=== PATIENT | female | born 1965 | race American Indian/Alaskan Native ===

== ENCOUNTER 2016-08-23 12:36 | Emergency (ER) | payer OTHER ==
[2016-08-23 12:39] VITALS: BMI 39.2
[2016-08-23 12:46] VITALS: TEMP 98.6
--- NOTE | 2016-08-23 13:42 | ED PDOC ---
Arrival/HPI - General Chief Complaint: Weakness/Neurological Deficit Time Seen by Provider: 08/23/16 12:53 Historian: Patient - History of Present Illness Narrative History of Present Illness (Text): 08/23/16 13:39 51 year old female with a past medical history that includes diabetes, hypertension, and c-spine stenosis presents to the emergency department with bilateral numbness on the shoulders approximately 2-3 hours prior to arrival. Patient states she was driving when she began to feel "heaviness" in both arms. Patient states the episode lasted for about 20 minutes and is now resolved. Denies chest pain, shortness of breath, or other symptoms. PMD: Dr. 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 - HEENT Hx HEENT Disorder: No - Renal Hx Renal Disorder: No - Endocrine/Metabolic Hx Diabetes Mellitus Type 2: Yes - Hematological/Oncological Hx Blood Disorders: No - Integumentary Hx Dermatological Disorder: No - Musculoskeletal/Rheumatological Hx Musculoskeletal Disorders: Yes (CARPAL TUNNEL,CERVICAL SPONDYLOSIS) Hx Arthritis: Yes (Hx of right knee. Currently neck/ left shoulder.) Hx Falls: No - Gastrointestinal Hx Gastrointestinal Disorders: Yes Hx Diverticulitis: Yes - Genitourinary/Gynecological Hx Genitourinary Disorders: No (HYSTERECTOMY SECONDARY TO FIBROID) - Psychiatric Hx Psychophysiologic Disorder: No Hx Substance Use: No - Past Surgical History Past Surgical History: Non-Contributing - Surgical History Hx Hysterectomy: Yes (2003.) - Anesthesia Hx Anesthesia Reactions: No Hx Malignant Hyperthermia: No - Suicidal Assessment Feels Threatened In Home Enviroment: No Family/Social History - Physician Review Nursing Documentation Reviewed: Yes Family/Social History: Unknown Family HX Smoking Status: Never Smoked Hx Alcohol Use: No Hx Substance Use: No Hx Substance Use Treatment: No Allergies/Home Meds Allergies/Adverse Reactions: Allergies No Known Allergies Allergy (Verified 03/24/16 22:39) Home Medications: Home Meds Medication Instructions Recorded Confirmed Aspirin 81 mg PO DAILY 09/26/14 08/23/16 Amlodipine Besylate [Norvasc] 10 mg PO BID 10/13/15 08/23/16 metFORMIN [glucOPHAGE] 500 mg PO BID 01/05/16 08/23/16 Enalapril Maleate [Vasotec] 10 mg PO DAILY 03/19/16 08/23/16 Insulin Glargine, Recombina 10 units SQ BID 03/24/16 08/23/16 [Lantus] Review of Systems - Physician Review All systems were reviewed & negative as marked: Yes - Review of Systems Eyes: absent: Vision Changes Respiratory: absent: SOB Cardiovascular: absent: Chest Pain Gastrointestinal: absent: Abdominal Pain Neurological: Other (Numbness to both arms (resolved)). absent: Dizziness Physical Exam Vital Signs Reviewed: Yes Vital Signs Temp Pulse Resp BP Pulse Ox 08/23/16 16:46 61 18 158/93 H 99 08/23/16 14:00 67 16 157/86 H 98 08/23/16 12:36 98.6 F 69 18 170/85 H 99 Temperature: Afebrile Blood Pressure: Hypertensive Pulse: Regular Respiratory Rate: Normal Appearance: Positive for: Well-Appearing, Non-Toxic, Comfortable Pain Distress: None Mental Status: Positive for: Alert and Oriented X 3 Finger Stick Blood Glucose: 249 - Systems Exam Head: Present: Atraumatic, Normocephalic Pupils: Present: PERRL Extroacular Muscles: Present: EOMI Conjunctiva: Present: Normal Mouth: Present: Moist Mucous Membranes Neck: Present: Normal Range of Motion Respiratory/Chest: Present: Clear to Auscultation, Good Air Exchange. No: Respiratory Distress, Accessory Muscle Use Cardiovascular: Present: Regular Rate and Rhythm, Normal S1, S2. No: Murmurs Abdomen: Present: Normal Bowel Sounds. No: Tenderness, Distention, Peritoneal Signs Back: Present: Normal Inspection Upper Extremity: Present: Normal Inspection. No: Cyanosis, Edema Lower Extremity: Present: Normal Inspection. No: Edema Neurological: Present: GCS=15, CN II-XII Intact, Speech Normal, Motor Func Grossly Intact, Normal Sensory Function, Normal Cerebellar Funct, Norm Deep Tendon Reflexes, Other (Brachioradialis and biceps reflex normal. Bilateral arm strength normal.) Skin: Present: Warm, Dry, Normal Color. No: Rashes Psychiatric: Present: Alert, Oriented x 3, Normal Insight, Normal Concentration Medical Decision Making ED Course and Treatment: EKG shows NSR at 62 BPM, normal axis, normal intervals, no acute ischemia PROCEDURE: CT HEAD WITHOUT CONTRAST. Clinical Studies Specialist : Andrés Mcclain MD IMPRESSION: Normal CT of the Head. 08/23/16 14:31 Patient now complaining of headache that began prior to arrival. She states it is getting worse. Patient reports she gets this same headache several times a year Disc with Dr Blanton who is familiar with the patient. He agrees w plan for close follow up next week. Pt has normal neuro exam, symmetric reflexes, no deficits. Patient states she feels better. she is comfortable w plan. Neck ROM is normal without difficulty or pain. Will return if worse. - Lab Interpretations Lab Results: 08/23/16 13:20 08/23/16 13:20 Lab Results 08/23/16 13:20: WBC 8.2, RBC 4.77, Hgb 13.3, Hct 39.6, MCV 83.0, MCH 27.9, MCHC 33.6, RDW 13.4, Plt Count 199, MPV 11.2 H, Gran % 71.8 H, Lymph % (Auto) 20.7 L , Bell % (Auto) 5.3, Eos % (Auto) 2.0, Baso % (Auto) 0.2, Gran # 5.87, Lymph # 1.7, Bell # 0.4, Eos # 0.2, Baso # 0.02, Sodium 136, Potassium 4.2, Chloride 99 , Carbon Dioxide 31, Anion Gap 10, BUN 11, Creatinine 0.5, Est GFR ( Amer ) > 60, Est GFR (Non-Af Amer) > 60, Random Glucose 227 H, Calcium 9.1, Total Bilirubin 0.7, AST 27, ALT 39, Alkaline Phosphatase 98, Troponin I < 0.01, Total Protein 7.3, Albumin 3.7, Globulin 3.6, Albumin/Globulin Ratio 1.0 L - RAD Interpretation Radiology Orders: 08/23/16 14:25 HEAD W/O CONTRAST [CT] Stat - EKG Interpretation Interpreted by ED Physician: Yes Type: 12 lead EKG - Medication Orders Current Medication Orders: Discontinued Medications Acetaminophen (Tylenol 325mg Tab) 975 mg PO STAT STA Stop: 08/23/16 16:14 Last Admin: 08/23/16 16:56 Dose: 975 MG Diphenhydramine HCl (Benadryl) 25 mg IVP STAT STA Stop: 08/23/16 16:14 Last Admin: 08/23/16 16:56 Dose: Not Given Non-Admin Reason: Allergy Ibuprofen (Motrin Tab) 800 mg PO STAT STA Stop: 08/23/16 14:26 Last Admin: 08/23/16 14:45 Dose: 800 MG Metoclopramide HCl (Reglan) 10 mg IVP STAT STA Stop: 08/23/16 16:14 Last Admin: 08/23/16 16:56 Dose: 10 MG IVP Administration Document 08/23/16 16:56 EQ (Rec: 08/23/16 16:56 EQ [facility] [facility] [id number] Charges for Administration # of IVP Administrations 1 Disposition/Present on Arrival - Present on Arrival Any Indicators Present on Arrival: No History of DVT/PE: No History of Uncontrolled Diabetes: No Urinary Catheter: No History of Decub. Ulcer: No History Surgical Site Infection Following: None - Disposition Have Diagnosis and Disposition been Completed?: Yes Diagnosis: Cervical radiculopathy Disposition: HOME/ ROUTINE Disposition Time: 16:36 Patient Problems: Current Active Problems Problem Status Diagnosed Cervical radiculopathy Acute Condition: STABLE Discharge Instructions (ExitCare): Cervical Radiculopathy (ED) Additional Instructions: Please follow up with Dr Blanton on Friday for further testing. Return to the ER for any worsening symptoms or for any other concerns. Prescriptions: Acetaminophen with Codeine [Tylenol with Codeine #3 Tablet] 1 each PO Q4H PRN # 10 tablet PRN Reason: Pain, Moderate (4-7) Referrals: Brent Blanton MD [Family Provider] - Follow up with primary
[2016-08-23 13:52] LABS: ADD MANUAL DIFF? NO
[2016-08-23 14:00] LABS: BASO # 0.02 K/mm3 (0.0-2.0); BASO % 0.2 % (0.0-3.0); EOS # 0.2 (0.0-0.7); GRAN # 5.87 (1.4-6.5); GRAN % 71.8 % (50.0-68.0); HEMATOCRIT 39.6 % (36.0-48.0); LYMPH # 1.7 (1.2-3.4); LYMPH % 20.7 % (22.0-35.0); MEAN CORPUSCULAR HEMOGLOBIN 27.9 pg (25.0-35.0); MEAN CORPUSCULAR HGB CONC 33.6 g/dl (31.0-37.0); MEAN PLATELET VOLUME 11.2 fl (7.0-11.0); MONO # 0.4 (0.1-0.6); MONO % 5.3 % (1.0-6.0); PLATELET COUNT 199 10^3/uL (120.0-450.0); RED CELL DISTRIBUTION WIDTH 13.4 % (11.5-14.5); WHITE BLOOD COUNT 8.2 10^3/ul (4.5-11.0)
[2016-08-23 14:09] LABS: ALKALINE PHOSPHATASE 98 U/L (38-133); ALT/SGPT 39 U/L (7-56); AST/SGOT 27 U/L (15-39); BILIRUBIN,TOTAL 0.7 mg/dL (0.2-1.3); BLOOD UREA NITROGEN 11 mg/dL (7-21); CALCIUM 9.1 mg/dL (8.4-10.5); CARBON DIOXIDE 31 mmol/L (21-33); CHLORIDE 99 mmol/L (98-107); GFR AFRICAN-AMERICAN > 60; GLUCOSE,RANDOM 227 mg/dL (70-110); POTASSIUM 4.2 mmol/L (3.6-5.0); SODIUM 136 mmol/L (132-148); TOTAL PROTEIN 7.3 g/dL (5.8-8.3)
[2016-08-23 14:21] LABS: TROPONIN I < 0.01 ng/mL
--- NOTE | 2016-08-23 15:05 | CT ---
PROCEDURE: CT HEAD WITHOUT CONTRAST. HISTORY: headache COMPARISON: 01/19/2014 TECHNIQUE: Axial computed tomography images were obtained through the head/brain without intravenous contrast. Radiation dose: Total exam DLP = 629 mGy-cm. This CT exam was performed using one or more of the following dose reduction techniques: Automated exposure control, adjustment of the mA and/or kV according to patient size, and/or use of iterative reconstruction technique. FINDINGS: HEMORRHAGE: No intracranial hemorrhage. BRAIN: No mass effect or edema. No atrophy or chronic microvascular ischemic changes. VENTRICLES: Unremarkable. No hydrocephalus. CALVARIUM: Unremarkable. PARANASAL SINUSES: Unremarkable as visualized. No significant inflammatory changes. MASTOID AIR CELLS: Unremarkable as visualized. No inflammatory changes. OTHER FINDINGS: None. IMPRESSION: Normal CT of the Head.
[2016-08-23] MEDS ORDERED: DiphenhydrAMINE 50 mg/ml Inj IVP STA (16:13)
[2016-08-23 16:47] VITALS: RESP 18; O2SAT 99
[2016-08-24 00:06] VITALS: BP 155/90; PULSE 66
--- NOTE | 2016-08-24 11:18 | CARD ---
APPROVED REPORT EKG Measurement Heart [id number] <Conclusion> Normal sinus rhythm Minimal voltage criteria for LVH, may be normal variant No change
== END 2016-08-23 18:10 | disposition home or self-care (01) ==
LOC: ED 12:36
DX: M54.12 Radiculopathy, cervical region (principal)
CPT/HCPCS: 70450; 80053; 84484; 85025; 93005; 96374; 99285; J2765

== ENCOUNTER 2016-09-24 22:46 | Observation (INO) | payer OTHER ==
[2016-09-24 22:57] VITALS: BMI 40.0
--- NOTE | 2016-09-24 23:21 | ED PDOC ---
Arrival/HPI - General Chief Complaint: Dizziness/Lightheaded Time Seen by Provider: 09/24/16 22:54 Historian: Patient - History of Present Illness Narrative History of Present Illness (Text): 09/24/16 22:59 Lillie Concepcion is a 51 year old female, whose past medical history includes diabetes, hypertension, hyperlipidemia, vertigo, and chronic neck pain , who presents to the ED complaining of dizziness. Patient states as she was driving home from work she began to feel dizzy. Patient states she felt near- syncopal and notes dizziness worsened after she bent down to pick something up while at home. Patient reports associated right-sided head pressure. Patient states took 1 Aspirin prior to arrival. Patient denies any fever, chills, chest pain, shortness of breath, nausea, vomiting, diarrhea, urinary symptoms, back pain, neck pain, or any other complaints. 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 - HEENT Hx HEENT Disorder: No - Renal Hx Renal Disorder: No - Endocrine/Metabolic Hx Diabetes Mellitus Type 2: Yes - Hematological/Oncological Hx Blood Disorders: No - Integumentary Hx Dermatological Disorder: No - Musculoskeletal/Rheumatological Hx Musculoskeletal Disorders: Yes (CARPAL TUNNEL,CERVICAL SPONDYLOSIS) Hx Arthritis: Yes (Hx of right knee. Currently neck/ left shoulder.) Hx Falls: No - Gastrointestinal Hx Gastrointestinal Disorders: Yes Hx Diverticulitis: Yes - Genitourinary/Gynecological Hx Genitourinary Disorders: No (HYSTERECTOMY SECONDARY TO FIBROID) - Psychiatric Hx Psychophysiologic Disorder: No Hx Substance Use: No - Past Surgical History Past Surgical History: Non-Contributing - Surgical History Hx Hysterectomy: Yes (2003.) - Anesthesia Hx Anesthesia: Yes Hx Anesthesia Reactions: No Hx Malignant Hyperthermia: No - Suicidal Assessment Feels Threatened In Home Enviroment: No Family/Social History - Physician Review Nursing Documentation Reviewed: Yes Family/Social History: No Known Family HX Smoking Status: Never Smoked Hx Alcohol Use: No Hx Substance Use: No Hx Substance Use Treatment: No Allergies/Home Meds Allergies/Adverse Reactions: Allergies No Known Allergies Allergy (Verified 03/24/16 22:39) Home Medications: Home Meds Medication Instructions Recorded Confirmed Aspirin 81 mg PO DAILY 09/26/14 08/23/16 Amlodipine Besylate [Norvasc] 10 mg PO BID 10/13/15 08/23/16 metFORMIN [glucOPHAGE] 500 mg PO BID 01/05/16 08/23/16 Enalapril Maleate [Vasotec] 10 mg PO DAILY 03/19/16 08/23/16 Insulin Glargine, Recombina 10 units SQ BID 03/24/16 08/23/16 [Lantus] Review of Systems - Physician Review All systems were reviewed & negative as marked: Yes - Review of Systems Constitutional: Normal. absent: Fevers Eyes: Normal. absent: Vision Changes ENT: Normal Respiratory: Normal. absent: SOB, Cough Cardiovascular: Other (+near-syncope) Gastrointestinal: Normal. absent: Abdominal Pain, Diarrhea, Nausea, Vomiting Genitourinary Female: Normal. absent: Dysuria, Frequency, Hematuria, Urine Output Changes Musculoskeletal: Normal. absent: Back Pain, Neck Pain Skin: Normal. absent: Rash Neurological: Headache, Dizziness. absent: Focal Weakness, Speech Changes Endocrine: Normal Hemo/Lymphatic: Normal Psychiatric: Normal Physical Exam Vital Signs Reviewed: Yes Vital Signs Temp Pulse Resp BP Pulse Ox 09/24/16 23:18 98.6 F 71 71 H 149/78 98 Temperature: Afebrile Blood Pressure: Normal Pulse: Regular Respiratory Rate: Normal Appearance: Positive for: Well-Appearing, Non-Toxic, Comfortable Pain Distress: None Mental Status: Positive for: Alert and Oriented X 3 - Systems Exam Head: Present: Atraumatic, Normocephalic Pupils: Present: PERRL Extroacular Muscles: Present: EOMI Conjunctiva: Present: Normal Ears: Present: Normal, NORMAL TM, Normal Canal. No: Erythema, TM Bulging, Fluid , TM Perf Mouth: Present: Moist Mucous Membranes Pharnyx: Present: Normal. No: ERYTHEMA, EXUDATE, TONSILS ENLARGED, Peritonsilar Swelling, Uvular Deviation, Muffled/Hoarse Voice, Strider, Soft Palate/Uvular Edema Nose (External): Present: Atraumatic Nose (Internal): Present: Normal Inspection Neck: Present: Normal Range of Motion. No: Meningeal Signs, MIDLINE TENDERNESS , Paraspinal Tenderness Respiratory/Chest: Present: Clear to Auscultation, Good Air Exchange. No: Respiratory Distress, Accessory Muscle Use Cardiovascular: Present: Regular Rate and Rhythm, Normal S1, S2. No: Murmurs Abdomen: Present: Normal Bowel Sounds. No: Tenderness, Distention, Peritoneal Signs Upper Extremity: Present: Normal Inspection. No: Cyanosis, Edema Lower Extremity: Present: Normal Inspection. No: Edema Neurological: Present: GCS=15, CN II-XII Intact, Speech Normal, Motor Func Grossly Intact, Normal Sensory Function, Normal Cerebellar Funct Skin: Present: Warm, Dry, Normal Color. No: Rashes Psychiatric: Present: Alert, Oriented x 3, Normal Insight, Normal Concentration Medical Decision Making ED Course and Treatment: 09/24/16 22:59 Impression: 51 year old female complaining of dizziness, near-syncope, and head pressure tonight. Differential Diagnosis include but are not limited to: near-syncope Plan: -- CT Head w/o contrast -- EKG -- Chest X-ray -- Labs, cardiac enzymes -- Antivert -- Reassess and disposition Prior Visits: Notes and results from previous visits were reviewed. Progress Notes: Reviewed EKG, NSR at 71 bpm. Occasional PAC. Non-specific ST/T wave changes. 09/25/16 00:27 Reviewed Chest X-ray, shows no active disease. 09/25/16 00:36 Reviewed radiology, CT Head shows: No evidence of acute pathology. 09/25/16 01:[address] Blanton, who is aware and agrees with plan. Accepts pt in to his service. Pt will go to Telemetry observation for near-syncope. - Lab Interpretations Lab Results: 09/24/16 23:39 09/24/16 23:39 Lab Results 09/24/16 23:39: WBC 10.6 D, RBC 4.46, Hgb 12.5, Hct 37.2, MCV 83.4, MCH 28.0, MCHC 33.6, RDW 13.1, Plt Count 230, MPV 11.0 09/24/16 23:39: Sodium 136, Potassium 3.8, Chloride 97 L, Carbon Dioxide 30, Anion Gap 13, BUN 16, Creatinine 0.7, Est GFR ( Amer) > 60, Est GFR (Non- Af Amer) > 60, Random Glucose 234 H, Calcium 8.8, Total Bilirubin 0.7, AST 24, ALT 30, Alkaline Phosphatase 96, Lactate Dehydrogenase 509, Total Creatine Kinase 170, Troponin I < 0.01, Total Protein 7.3, Albumin 3.7, Globulin 3.7, Albumin/Globulin Ratio 1.0 L 09/24/16 23:39: PT 11.3, INR 1.05, APTT 30.9 H I have reviewed the lab results: Yes - RAD Interpretation Narrative RAD Interpretations (Text): Chest X-ray shows no active disease CT Head shows: Brain: No evidence of acute intracranial bleed. No mass lesion or mass effect. Lamb/white matter differentiation is unremarkable. Cerebellum is unremarkable. Cisterns are unremarkable. Brainstem is unremarkable. No suprasellar mass. No edema. Ventricles: Unremarkable. No ventriculomegaly. Bones/joints: Unremarkable. No acute fracture. Soft tissues: Unremarkable. Sinuses: Unremarkable as visualized. No acute sinusitis. Mastoid air cells: Unremarkable as visualized. No mastoid effusion. IMPRESSION: No evidence of acute pathology. Radiology Orders: 09/24/16 23:01 HEAD W/O CONTRAST [CT] Stat 09/24/16 23:02 CHEST PORTABLE [RAD] Stat Casket Trimmer: ED Physician, Radiologist - EKG Interpretation Interpreted by ED Physician: Yes Type: 12 lead EKG - Medication Orders Current Medication Orders: Discontinued Medications Meclizine HCl (Antivert) 25 mg PO STAT STA Stop: 09/24/16 23:04 Last Admin: 09/24/16 23:33 Dose: 25 mg - Scribe Statement The provider has reviewed the documentation as recorded by the Valarie Clay All medical record entries made by the Valarie were at my direction and personally dictated by me. I have reviewed the chart and agree that the record accurately reflects my personal performance of the history, physical exam, medical decision making, and the department course for this patient. I have also personally directed, reviewed, and agree with the discharge instructions and disposition. Disposition/Present on Arrival - Present on Arrival Any Indicators Present on Arrival: No History of DVT/PE: No History of Uncontrolled Diabetes: No Urinary Catheter: No History of Decub. Ulcer: No History Surgical Site Infection Following: None - Disposition Have Diagnosis and Disposition been Completed?: Yes Diagnosis: Near syncope, Vertigo Disposition: HOSPITALIZED Disposition Time: 02:00 Patient Plan: Observation Patient Problems: Current Active Problems Problem Status Onset Near syncope Acute Vertigo Acute Condition: STABLE
[2016-09-24 23:58] LABS: HEMATOCRIT 37.2 % (36.0-48.0); MEAN CELL VOLUME 83.4 fL (80.0-105.0); MEAN CORPUSCULAR HGB CONC 33.6 g/dl (31.0-37.0); RED CELL DISTRIBUTION WIDTH 13.1 % (11.5-14.5); WHITE BLOOD COUNT 10.6 10^3/ul (4.5-11.0)
[2016-09-25 01:42] LABS: ALKALINE PHOSPHATASE 96 U/L (38-133); ALT/SGPT 30 U/L (7-56); AST/SGOT 24 U/L (15-39); BILIRUBIN,TOTAL 0.7 mg/dL (0.2-1.3); BLOOD UREA NITROGEN 16 mg/dL (7-21); CALCIUM 8.8 mg/dL (8.4-10.5); CARBON DIOXIDE 30 mmol/L (21-33); CHLORIDE 97 mmol/L (98-107); GFR AFRICAN-AMERICAN > 60; GLUCOSE,RANDOM 234 mg/dL (70-110); POTASSIUM 3.8 mmol/L (3.6-5.0); SODIUM 136 mmol/L (132-148); TOTAL PROTEIN 7.3 g/dL (5.8-8.3)
[2016-09-25 02:13] LABS: INR 1.05 (0.93-1.08); PARTIAL THROMBOPLASTIN TIME 30.9 Seconds (23.7-30.8)
[2016-09-25 02:40] LABS: TROPONIN I < 0.01 ng/mL
[2016-09-25 05:58] VITALS: O2SAT 97
--- NOTE | 2016-09-25 07:12 | RAD ---
HISTORY: dizzy COMPARISON: 04/23/2015 FINDINGS: LUNGS: No active pulmonary disease. PLEURA: No significant pleural effusion identified, no pneumothorax apparent. CARDIOVASCULAR: Normal. OSSEOUS STRUCTURES: Thoracic spondylosis VISUALIZED UPPER ABDOMEN: Normal. OTHER FINDINGS: None. IMPRESSION: No active disease.
--- NOTE | 2016-09-25 10:22 | CT ---
PROCEDURE: CT HEAD WITHOUT CONTRAST. HISTORY: headache/dizzy COMPARISON: 08/23/2016 TECHNIQUE: Axial computed tomography images were obtained through the head/brain without intravenous contrast. Radiation dose: Total exam DLP = 689 mGy-cm. This CT exam was performed using one or more of the following dose reduction techniques: Automated exposure control, adjustment of the mA and/or kV according to patient size, and/or use of iterative reconstruction technique. FINDINGS: HEMORRHAGE: No intracranial hemorrhage. BRAIN: No mass effect or edema. No atrophy or chronic microvascular ischemic changes. VENTRICLES: Unremarkable. No hydrocephalus. CALVARIUM: Unremarkable. PARANASAL SINUSES: Unremarkable as visualized. No significant inflammatory changes. MASTOID AIR CELLS: Unremarkable as visualized. No inflammatory changes. OTHER FINDINGS: None. IMPRESSION: Normal CT of the Head.
[2016-09-25] MEDS ORDERED: Home Med 1 UNIT INJ SCH (11:15)
[2016-09-25] MEDS: Insulin Detemir 100 units/ml Vial (Levemir) SC SCH ×2 (11:46→17:52)
[2016-09-25] MEDS ORDERED: Apap-Butalbital-Caffeine 325-50-40mg Tab PO PRN (12:04)
[2016-09-25 12:27] VITALS: RESP 20
--- NOTE | 2016-09-25 12:57 | CON ---
DATE: 09/25/2016 CHIEF COMPLAINT: Dizziness, lightheaded. HISTORY OF PRESENT ILLNESS: This is a 51-year-old -[place] woman with medical history of typ e 2 diabetes mellitus, uncontrolled hypertension, hyperlipidemia, vertigo, history of chronic neck pa in with history of C5-C6 and C6-C7 neural foraminal stenosis, who apparently was at work and felt the room was spinning. She drove home, got home and she was cooking food and when she went to bend down to pick something up, she felt the whole room spinning and felt unsteady on her feet and had right s андрей pressure headache; therefore, came to the hospital for further evaluation. Her CAT scan of the h ead showed no acute intracranial abnormality. Upon my examination, she has mild nystagmus on leftwar d gaze indicating this is a positional vertigo. She is currently feeling less vertiginous and dizzy currently right now. I have given her Fioricet one tab q. 6 hours for onset of headache. She is doi ng well, following all commands. She is hyperglycemic as well of 236. PAST MEDICAL HISTORY: Diabetes, hypertension, hyperlipidemia, vertigo, chronic neck pain. REVIEW OF SYSTEMS: A 14-point review of systems is negative except for the HPI. ALLERGIES: No known drug allergies. MEDICATIONS: Reviewed via nurse's reconciliation sheet. SOCIAL HISTORY: No illicit drug use, smoking, or ETOH abuse. FAMILY HISTORY: Noncontributory. PHYSICAL EXAMINATION: VITAL SIGNS: Temperature 98, pulse rate 74, blood pressure 149/88, respiratory rate of 22, oxygen sa turation of 97% on room air. GENERAL: The patient is sitting up in bed in no acute distress. HEENT: Atraumatic, normocephalic. PERRLA. Extraocular muscles intact. NECK: Supple, no JVD, no adenopathy noted. LUNGS: Clear to auscultation. No adventitious sounds. HEART: S1, S2, normal rate and rhythm. No murmurs, rubs, or gallops. ABDOMEN: Soft, nontender, nondistended. Bowel sounds present. EXTREMITIES: No clubbing, no cyanosis. Peripheral pulses 2+ felt bilaterally. NEUROLOGIC: The patient is alert, oriented to person, place, month and year. Speech is fluent, with out any errors. Cranial nerves II through XII are intact. MOTOR EXAM: Moves all extremities equally. Toes downgoing bilaterally. SENSORY: Decreased light touch and pinprick up to the calves bilaterally, decreased vibration of the toes. DTRs are 2+ throughout and 1 at the ankles. COORDINATION: Wslnot-zw-ygct intact. GAIT: Deferred for now. LABORATORIES: Sodium is 136, potassium 3.8, chloride of 97, carbon dioxide 30, BUN of 16, creatinine 0.7, random glucose at 244. ASSESSMENT AND PLAN: This is a 51-year-old woman with history of chronic neck pain, history of hyper tension, dyslipidemia, type 2 diabetes mellitus, history of vertigo who presented with dizziness in t erms of spinning sensation of the room, especially when bending her neck downwards or bending to pick something up and felt unsteady along with a right-sided pressure headache. Her symptoms are seconda ry to positional vertigo along with tension base headache. At this time, recommend: 1. Outpatient vestibular therapy, which will only be the most beneficial for her underlying vertigo as well as meclizine 25 mg p.o. t.i.d. Neuro exam is nonfocal except for some mild evidence of diabe tic peripheral neuropathy from her underlying diabetes. 2. Keep the blood sugar between 141 and 80, and recommend a diabetic diet. 3. She is clinically stable at this point. Can give Fioricet 1 tab p.o. q. 6 hours for acute onset of headache and if stable today, she can be discharged by the end of the day. Thank you for this consult. Jett Stringer MD cc: [id number] TT: 09/25/2016 12:57:46 Confirmation # [id number] Dictation # [id number] yelena
--- NOTE | 2016-09-25 16:28 | CARD ---
APPROVED REPORT EKG Measurement Heart [id number] <Conclusion> Sinus rhythm with premature atrial complexes Minimal voltage criteria for LVH, may be normal variant Borderline ECG
[2016-09-25 18:59] VITALS: BP 136/67; PULSE 71; TEMP 98.5
--- NOTE | 2016-09-27 03:57 | CP.PCM.PN ---
Subjective - Date & Time of Evaluation Date of Evaluation: 09/26/16 Time of Evaluation: 20:00 - Subjective Subjective: # 22 angiocath was inserted in right arm. Dx:poor venous access. Objective - Vital Signs/Intake and Output Vital Signs (last 24 hours): Temp Pulse Resp BP Pulse Ox 98.5 F 71 20 136/67 97 09/25/16 18:00 09/25/16 18:00 09/25/16 18:00 09/25/16 18:00 09/25/16 05:57 - Labs Labs: PT 11.3 Seconds (9.9-11.8) 09/24/16 23:39 INR 1.05 (0.93-1.08) 09/24/16 23:39 APTT 30.9 Seconds (23.7-30.8) H 09/24/16 23:39
--- NOTE | 2016-09-27 08:17 | HP ---
HISTORY OF PRESENT ILLNESS: A 51-year-old -Stateless female, who came into the Emergency Room because of dizziness. According to the patient, the patient was at home. She tried to bend down to get something and when she moved up, she felt so dizzy that the whole room was spinning around. It h appened a couple of times. It seems it got more frequent than before. She felt so worried, and she came to the Emergency Room for evaluation. The patient did have a history of lightheadedness in the past. She did have a history of hypertension that seems uncontrolled in the past, but it seems bernardo r now. She does have a history of vertigo also in the past. Seen by neurologist in the past, a coup le of years. PAST MEDICAL HISTORY: Significant for diabetes, hypertension, hyperlipidemia, vertigo, chronic neck pain, knee arthritis, obesity. REVIEW OF SYSTEMS: The patient does complain of knee pain, otherwise she feels fine. She has no leander st pain. Not short of breath. ALLERGIES: No known allergies. 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 PHYSICAL EXAMINATION: VITAL SIGNS: Temperature is 98, heart rate 106, blood pressure 131/84, respirations 20. HEAD AND NECK: Normal. No JVD. No thyromegaly. CHEST: Clear, good entry. CARDIAC: 1st sound, 2nd second normal. ABDOMEN: Soft, obese, nontender. EXTREMITIES: Mild edema. NEUROLOGIC: Normal. LABORATORY DATA: Shows a white count 10.6, hemoglobin 12.5, hematocrit 37.2, platelets are 230. Leander shabbir noted for sodium 136, potassium 3.8, chloride 97, bicarbonate 30, BUN 16, creatinine 0.7. Blo od sugar is 234. Liver function test is normal. Also she had a CAT scan of the head in the Emergenc y Room, which was read as no mass effect or edema, no atrophy or chronic microvascular disease. Elec trocardiogram also was done, which shows minimal voltage criteria for LVH, sinus rhythm with prematur e atrial complexes. Also, the patient had a chest x-ray when she came in, which showed no active pul monary disease. IMPRESSION AND PLAN: This is a 51-year-old female, who came in with dizziness, vertigo-like symptoms . Probably, the patient does have positional vertigo. She did have workup in the past for similar t o this, which came back negative; however, we will keep the patient in. We will consider meclizine. Neuro consultation, Dr. Stringer. Resume all blood pressure, diabetes medicines. Follow up clinicall y. Brent Blanton MD cc: [phone] TT: 09/27/2016 00:40:07 tn
--- NOTE | 2016-09-27 08:17 | DS ---
HISTORY OF PRESENT ILLNESS: A 51-year-old female who came in to the hospital because of vertigo symp toms. She was seen by Dr. Stringer, who evaluated the patient and recommended meclizine for dizziness. The patient seems clinically stable. She is not dizzy anymore. She wants to go back to work. She has no chest pain, no shortness of breath, no other complaints. PHYSICAL EXAMINATION: VITAL SIGNS: Temperature 98, heart rate 71, blood pressure 136/67, respirations 20. GENERAL: Physical exam seems no change. LABORATORY DATA: Within normal range. Blood sugar runs 150 to 180, a little bit on the high side. DISCHARGE DIAGNOSES: 1. Vertigo or dizziness. 2. Hypertension. 3. Diabetes. 4. Obesity. 5. Chronic knee pain, arthritis. PLAN: To discharge the patient home. Prescription meclizine was electronically sent. Discussed wit h the patient the treatment and will follow up. The patient was discharged home to be followed up in office. A note for work was given and we will see the patient within a week. Brent Blanton MD cc: [phone] TT: 09/27/2016 03:01:24 mo
== END 2016-09-26 13:44 | disposition home or self-care (01) ==
LOC: ED 22:46 → ERH 09-25 03:04 → 2RNO 09-25 04:46
PROVIDERS: ADMIT Internal Medicine; ATTEND Internal Medicine
DX: H81.10 Benign paroxysmal vertigo, unspecified ear (principal); I10 Essential (primary) hypertension; E66.9 Obesity, unspecified; M17.9 Osteoarthritis of knee, unspecified; E11.65 Type 2 diabetes mellitus with hyperglycemia; R51 Headache; E11.40 Type 2 diabetes mellitus with diabetic neuropathy, unspecified; E78.5 Hyperlipidemia, unspecified; G89.29 Other chronic pain; Z79.4 Long term (current) use of insulin; Z79.82 Long term (current) use of aspirin; Z79.899 Other long term (current) drug therapy; Z90.710 Acquired absence of both cervix and uterus; Z68.41 Body mass index [BMI] 40.0-44.9, adult
CPT/HCPCS: 70450; 71010; 80053; 82550; 82948; 83615; 84484; 85027; 85610; 85730; 93005; 99284; G0378

== ENCOUNTER 2016-10-04 07:44 | Emergency (ER) | payer OTHER ==
[2016-10-04 08:14] VITALS: TEMP 98.1; BMI 40.2
[2016-10-04] MEDS ORDERED: Sodium Chloride 0.9% 1,000 ML IV SCH (09:00)
--- NOTE | 2016-10-04 09:03 | ED PDOC ---
Arrival/HPI - General Chief Complaint: Dizziness/Lightheaded Time Seen by Provider: 10/04/16 08:55 Historian: Patient - History of Present Illness Narrative History of Present Illness (Text): 10/04/16 08:52 A 51 year old female presents to the emergency department complaining of dizziness and right ear pain that began this morning. Patient reports last week she had similar symptoms for which she was admitted. Patient took Antivert for the dizziness but it only brought her mild relief. Patient says the dizziness is more like short dizzy spells and the right ear pain is throbbing. She notes a mild headache currently but denies any fever, nausea, vomiting, sinus pain, or any other complaints at this time. PMD: Dr. Blanton Time/Duration: 1-3 hours Symptom Onset: Sudden Symptom Course: Intermittent Quality: Other Activities at Onset: Rest Context: Home Past Medical History - Provider Review Nursing Documentation Reviewed: Yes - Infectious Disease Hx of Infectious Diseases: None - Tetanus Immunization Tetanus Immunization: Unknown - Reproductive Menopause: Yes - Cardiac Hx Cardiac Disorders: Yes Hx Angina: Yes Hx Hypertension: Yes - Pulmonary Hx Asthma: Yes Hx Bronchitis: Yes - Neurological Hx Dizziness: Yes - HEENT Hx HEENT Disorder: No - Renal Hx Renal Disorder: No - Endocrine/Metabolic Hx Endocrine Disorders: Yes Hx Diabetes Mellitus Type 2: Yes - Hematological/Oncological Hx Blood Disorders: No - Integumentary Hx Dermatological Disorder: No - Musculoskeletal/Rheumatological Hx Musculoskeletal Disorders: Yes (Carpal Tunnel, Cervical spondylosis) Hx Arthritis: Yes Hx Degenerative Joint Disease: Yes Hx Herniated Disk: Yes - Gastrointestinal Hx Diverticulitis: Yes - Genitourinary/Gynecological Hx Genitourinary Disorders: No (HYSTERECTOMY SECONDARY TO FIBROID) - Psychiatric Hx Psychophysiologic Disorder: Yes Hx Anxiety: Yes Hx Panic Disorder: Yes Hx Substance Use: No - Past Surgical History Past Surgical History: Non-Contributing - Surgical History Hx Hysterectomy: Yes - Anesthesia Hx Anesthesia: Yes Hx Anesthesia Reactions: No Hx Malignant Hyperthermia: No - Suicidal Assessment Feels Threatened In Home Enviroment: No Family/Social History - Physician Review Nursing Documentation Reviewed: Yes Family/Social History: Unknown Family HX Smoking Status: Never Smoked Hx Alcohol Use: No Hx Substance Use: No Hx Substance Use Treatment: No Allergies/Home Meds Allergies/Adverse Reactions: Allergies No Known Allergies Allergy (Verified 10/04/16 08:14) Home Medications: Home Meds Medication Instructions Recorded Confirmed Aspirin 81 mg PO DAILY 09/26/14 10/04/16 Amlodipine Besylate [Norvasc] 10 mg PO BID 10/13/15 10/04/16 metFORMIN [glucOPHAGE] 500 mg PO BID 01/05/16 10/04/16 Enalapril Maleate [Vasotec] 10 mg PO DAILY 03/19/16 10/04/16 Insulin Glargine, Recombina 10 units SQ BID 03/24/16 10/04/16 [Lantus] Meclizine [Antivert] 25 mg PO Q6 10/04/16 10/04/16 Review of Systems - Physician Review All systems were reviewed & negative as marked: Yes - Review of Systems Constitutional: absent: Fevers ENT: TMJ Pain (right). absent: Sinus Congestion Neurological: Headache, Dizziness Physical Exam Vital Signs Reviewed: Yes Vital Signs Temp Pulse Resp BP Pulse Ox 10/04/16 10:45 74 16 120/76 98 10/04/16 08:10 98.1 F 78 18 137/77 95 Temperature: Afebrile Blood Pressure: Normal Pulse: Regular Respiratory Rate: Normal Appearance: Positive for: Well-Appearing, Non-Toxic, Comfortable Pain Distress: None Mental Status: Positive for: Alert and Oriented X 3 - Systems Exam Head: Present: Atraumatic, Normocephalic Pupils: Present: PERRL Extroacular Muscles: Present: EOMI Conjunctiva: Present: Normal Ears: Present: Fluid (right ear), Other (no mastoid tenderness). No: Erythema, TM Bulging Mouth: Present: Moist Mucous Membranes Neck: Present: Normal Range of Motion Respiratory/Chest: Present: Clear to Auscultation, Good Air Exchange. No: Respiratory Distress, Accessory Muscle Use Cardiovascular: Present: Regular Rate and Rhythm, Normal S1, S2. No: Murmurs Abdomen: Present: Normal Bowel Sounds. No: Tenderness, Distention, Peritoneal Signs Back: Present: Normal Inspection Upper Extremity: Present: Normal Inspection. No: Cyanosis, Edema Lower Extremity: Present: Normal Inspection. No: Edema Neurological: Present: GCS=15, CN II-XII Intact, Speech Normal Skin: Present: Warm, Dry, Normal Color. No: Rashes Psychiatric: Present: Alert, Oriented x 3, Normal Insight, Normal Concentration Medical Decision Making ED Course and Treatment: 10/04/16 08:52 Impression: A 51 year old female with dizziness, right ear pain and a headache. Differential Diagnosis include but are not limited to: ear infection vs. vertigo Plan: -- EKG -- Chest X-ray -- Labs -- Urinalysis -- Antivert, Reglan and IV Fluids -- Reassess and disposition Prior Visits: Notes and results from previous visits were reviewed. The patient last presented to the emergency department on 09/24/16 for evaluation of dizziness. Patient had a EKG, Chest X-ray and Head CT, which were unremarabkle. Patient was later placed in observation in Telemetry for near syncope. Progress Notes: EKG: Ordered, reviewed, and independently interpreted the EKG. Rate : 63 BPM Rhythm : NSR with 1st degree AV block Interpretation : normal axis 10/04/16 09:31 Chest X-ray: Creator : Andrés Mcclain MD COMPARISON: 09/25/2016 FINDINGS: LUNGS: No active pulmonary disease. PLEURA: No significant pleural effusion identified, no pneumothorax apparent. CARDIOVASCULAR: Normal. OSSEOUS STRUCTURES: No significant abnormalities. VISUALIZED UPPER ABDOMEN: Normal. OTHER FINDINGS: None. IMPRESSION: No active disease. 10/04/16 09:45 On re-evaluation, the patient feels better and is in no acute distress. I have discussed the results and plan with the patient, who expresses understanding. Patient in agreement with plan to discharged home. Patient is stable for discharge. Patient was instructed to follow up with physician/clinic in 1-2 days or return if symptoms worsen or new concerning symptoms arise. - Lab Interpretations Lab Results: 10/04/16 09:25 10/04/16 09:25 Lab Results 10/04/16 10:20: Urine Color Yellow, Urine Appearance Clear, Urine pH 6.0, Ur Specific Sunshine >= 1.030, Urine Protein Trace H, Urine Glucose (UA) Negative, Urine Ketones Negative, Urine Blood Small H, Urine Nitrate Negative, Urine Bilirubin Negative, Urine Urobilinogen 0.2, Ur Leukocyte Esterase Small H, Urine RBC 1 - 3, Urine WBC 1 - 3, Ur Epithelial Cells 1 - 3, Urine Bacteria Small 10/04/16 09:25: Sodium 138, Potassium 4.0, Chloride 101, Carbon Dioxide 31, Anion Gap 10, BUN 13, Creatinine 0.6, Est GFR ( Amer) > 60, Est GFR (Non- Af Amer) > 60, Random Glucose 224 H, Calcium 9.0, Magnesium 1.9, Total Bilirubin 0.5, AST 21, ALT 30, Alkaline Phosphatase 93, Lactate Dehydrogenase 454, Total Creatine Kinase 120, Troponin I < 0.01, Total Protein 7.1, Albumin 3.7, Globulin 3.4, Albumin/Globulin Ratio 1.1 10/04/16 09:25: WBC 9.1, RBC 4.50, Hgb 12.6, Hct 37.7, MCV 83.8, MCH 28.0, MCHC 33.4, RDW 12.9, Plt Count 220, MPV 11.1 H, Gran % 76.3 H, Lymph % (Auto) 16.5 L , [place] % (Auto) 4.7, Eos % (Auto) 2.3, Baso % (Auto) 0.2, Gran # 6.97 H, Lymph # 1.5, [place] # 0.4, Eos # 0.2, Baso # 0.02 I have reviewed the lab results: Yes - RAD Interpretation Radiology Orders: 10/04/16 08:56 CHEST PORTABLE [RAD] Stat - Medication Orders Current Medication Orders: Discontinued Medications Sodium Chloride (Sodium Chloride 0.9%) 1,000 mls @ 100 mls/hr IV .Q10H MAHIN Last Admin: 10/04/16 09:30 Dose: 100 mls/hr Meclizine HCl (Antivert) 25 mg PO STAT STA Stop: 10/04/16 08:57 Last Admin: 10/04/16 09:30 Dose: Metoclopramide HCl (Reglan) 10 mg IVP STAT STA Stop: 10/04/16 08:57 Last Admin: 10/04/16 09:25 Dose: 10 mg - Scribe Statement The provider has reviewed the documentation as recorded by the Valarie Hopkins Provider Whitleyibe Attestation: All medical record entries made by the Whitleyibinna were at my direction and personally dictated by me. I have reviewed the chart and agree that the record accurately reflects my personal performance of the history, physical exam, medical decision making, and the department course for this patient. I have also personally directed, reviewed, and agree with the discharge instructions and disposition. Disposition/Present on Arrival - Present on Arrival Any Indicators Present on Arrival: No History of DVT/PE: No History of Uncontrolled Diabetes: No Urinary Catheter: No History of Decub. Ulcer: No History Surgical Site Infection Following: None - Disposition Have Diagnosis and Disposition been Completed?: Yes Diagnosis: Otitis media, Dizziness Disposition: HOME/ ROUTINE Disposition Time: 09:45 Condition: IMPROVED Discharge Instructions (ExitCare): Vertigo (ED), Otitis Media (ED) Additional Instructions: Thank you for letting us take care of you today. Your provider was Dr. Ibrahim. You were treated for ear infection and dizziness. The emergency medical care you received today was directed at your acute symptoms. If you were prescribed any medication, please fill it and take as directed. It may take several days for your symptoms to resolve. Return to the Emergency Department if your symptoms worsen, do not improve, or if you have any other problems. Please contact your doctor or call one of the physicians/clinics you have been referred to that are listed on the Patient Visit Information form that is included in your discharge packet. Bring any paperwork you were given at discharge with you along with any medications you are taking to your follow up visit. Our treatment cannot replace ongoing medical care by a primary care provider (PCP) outside of the emergency department. Thank you for allowing the [facility] team to be part of your care today. Follow up with your doctor in 2-3 days for re-evaluation. Prescriptions: Amoxicillin 875 mg PO BID #14 tablet Referrals: Patricia Valero, [Primary Care Provider] - Follow up with primary
--- NOTE | 2016-10-04 09:22 | RAD ---
HISTORY: dizziness COMPARISON: 09/25/2016 FINDINGS: LUNGS: No active pulmonary disease. PLEURA: No significant pleural effusion identified, no pneumothorax apparent. CARDIOVASCULAR: Normal. OSSEOUS STRUCTURES: No significant abnormalities. VISUALIZED UPPER ABDOMEN: Normal. OTHER FINDINGS: None. IMPRESSION: No active disease.
[2016-10-04 09:35] LABS: ADD MANUAL DIFF? NO
[2016-10-04 09:41] LABS: BASO # 0.02 K/mm3 (0.0-2.0); BASO % 0.2 % (0.0-3.0); EOS # 0.2 (0.0-0.7); EOS % 2.3 % (1.5-5.0); GRAN # 6.97 (1.4-6.5); GRAN % 76.3 % (50.0-68.0); HEMATOCRIT 37.7 % (36.0-48.0); LYMPH # 1.5 (1.2-3.4); LYMPH % 16.5 % (22.0-35.0); MEAN CELL VOLUME 83.8 fL (80.0-105.0); MEAN CORPUSCULAR HGB CONC 33.4 g/dl (31.0-37.0); MEAN PLATELET VOLUME 11.1 fl (7.0-11.0); MONO # 0.4 (0.1-0.6); MONO % 4.7 % (1.0-6.0); PLATELET COUNT 220 10^3/uL (120.0-450.0); RED CELL DISTRIBUTION WIDTH 12.9 % (11.5-14.5); WHITE BLOOD COUNT 9.1 10^3/ul (4.5-11.0)
[2016-10-04 09:49] LABS: ALB/GLOB RATIO 1.1 (1.1-1.8); ALKALINE PHOSPHATASE 93 U/L (38-133); ALT/SGPT 30 U/L (7-56); AST/SGOT 21 U/L (15-39); BILIRUBIN,TOTAL 0.5 mg/dL (0.2-1.3); BLOOD UREA NITROGEN 13 mg/dL (7-21); CARBON DIOXIDE 31 mmol/L (21-33); CHLORIDE 101 mmol/L (98-107); GFR AFRICAN-AMERICAN > 60; GLUCOSE,RANDOM 224 mg/dL (70-110); MAGNESIUM 1.9 mg/dL (1.7-2.2); SODIUM 138 mmol/L (132-148); TOTAL PROTEIN 7.1 g/dL (5.8-8.3)
[2016-10-04 10:09] LABS: TROPONIN I < 0.01 ng/mL
[2016-10-04 10:31] LABS: URINE BILIRUBIN NEGATIVE (NEGATIVE); URINE BLOOD SMALL (NEGATIVE); URINE GLUCOSE (UA) NEGATIVE (NEGATIVE); URINE KETONE NEGATIVE (NEGATIVE); URINE LEUKOCYTE ESTERASE SMALL Leu/uL (NEGATIVE); URINE PROTEIN TRACE mg/dL (<30 mg/dL); URINE UROBILINOGEN 0.2 E.U./dL (<1 E.U./dL)
[2016-10-04 10:33] LABS: URINE APPEARANCE CLEAR (CLEAR); URINE COLOR YELLOW (YELLOW)
[2016-10-04 10:46] LABS: URINE BACTERIA SMALL (NEG)
[2016-10-04 11:06] VITALS: BP 120/76; PULSE 74; RESP 16; O2SAT 98
--- NOTE | 2016-10-04 15:17 | CARD ---
APPROVED REPORT EKG Measurement Heart [id number] <Conclusion> Poor data quality, interpretation may be adversely affected Normal sinus rhythm Minimal voltage criteria for LVH, may be normal variant Borderline ECG
== END 2016-10-04 10:45 | disposition home or self-care (01) ==
LOC: ED 07:44
DX: R42 Dizziness and giddiness (principal); H65.91 Unspecified nonsuppurative otitis media, right ear; I10 Essential (primary) hypertension; E11.9 Type 2 diabetes mellitus without complications
CPT/HCPCS: 71010; 80053; 81001; 82550; 83615; 83735; 84484; 85025; 87086; 93005; 96374; 99285; J2765; J7040

== ENCOUNTER 2016-10-15 23:04 | Emergency (ER) | payer OTHER ==
[2016-10-15 23:05] VITALS: BMI 40.2
[2016-10-15 23:20] VITALS: BP 122/76; TEMP 97.9
--- NOTE | 2016-10-16 00:10 | ED PDOC ---
Arrival/HPI - General Chief Complaint: Dizziness/Lightheaded Time Seen by Provider: 10/15/16 23:23 Historian: Patient - History of Present Illness Narrative History of Present Illness (Text): 10/16/16 00:04 Lillie Dumont is a 51 year old female, whose past medical history includes hypertension, diabetes, vertigo and hyperlipidemia, presents to the emergency department complaining of dizziness since yesterday evening. Patient states she was evaluated by PMD, , last week for ear infection and was started on antibiotics. Patient states that her ear pain present again today evening along with dizziness. Reports she took Meclizine at home for minimal relief. Denies any fever, chills, headache, chest pain, shortness of breath, nausea, vomiting, diarrhea, urinary symptoms or any other complaints at this time. Time/Duration: 4-6 hours Symptom Onset: Gradual Symptom Course: Unchanged Severity Level: Mild Activities at Onset: Light Past Medical History - Provider Review Nursing Documentation Reviewed: Yes - Infectious Disease Hx of Infectious Diseases: None - Tetanus Immunization Tetanus Immunization: Unknown - Cardiac Hx Cardiac Disorders: Yes Hx Angina: Yes Hx Hypertension: Yes - Pulmonary Hx Asthma: Yes Hx Bronchitis: Yes - Neurological Hx Dizziness: Yes - HEENT Hx HEENT Disorder: No - Renal Hx Renal Disorder: No - Endocrine/Metabolic Hx Endocrine Disorders: Yes Hx Diabetes Mellitus Type 2: Yes - Hematological/Oncological Hx Blood Disorders: No - Integumentary Hx Dermatological Disorder: No - Musculoskeletal/Rheumatological Hx Musculoskeletal Disorders: Yes (Carpal Tunnel, Cervical spondylosis) Hx Arthritis: Yes Hx Degenerative Joint Disease: Yes Hx Herniated Disk: Yes - Gastrointestinal Hx Diverticulitis: Yes - Genitourinary/Gynecological Hx Genitourinary Disorders: No (HYSTERECTOMY SECONDARY TO FIBROID) - Psychiatric Hx Psychophysiologic Disorder: Yes Hx Anxiety: Yes Hx Panic Disorder: Yes Hx Substance Use: No - Past Surgical History Past Surgical History: Non-Contributing - Surgical History Hx Hysterectomy: Yes - Anesthesia Hx Anesthesia: Yes Hx Anesthesia Reactions: No Hx Malignant Hyperthermia: No - Suicidal Assessment Feels Threatened In Home Enviroment: No Family/Social History - Physician Review Nursing Documentation Reviewed: Yes Family/Social History: No Known Family HX Smoking Status: Never Smoked Hx Alcohol Use: No Hx Substance Use: No Hx Substance Use Treatment: No Allergies/Home Meds Allergies/Adverse Reactions: Allergies No Known Allergies Allergy (Verified 10/15/16 23:21) Home Medications: Home Meds Medication Instructions Recorded Confirmed Aspirin 81 mg PO DAILY 09/26/14 10/15/16 Amlodipine Besylate [Norvasc] 10 mg PO BID 10/13/15 10/15/16 metFORMIN [glucOPHAGE] 500 mg PO BID 01/05/16 10/15/16 Enalapril Maleate [Vasotec] 10 mg PO DAILY 03/19/16 10/15/16 Insulin Glargine, Recombina 10 units SQ BID 03/24/16 10/15/16 [Lantus] Meclizine [Antivert] 25 mg PO Q6 10/04/16 10/15/16 Review of Systems - Physician Review All systems were reviewed & negative as marked: Yes - Review of Systems Constitutional: Normal. absent: Fatigue, Fevers Respiratory: Normal. absent: SOB, Cough, Sputum Cardiovascular: Normal. absent: Chest Pain, Palpitations Gastrointestinal: Normal. absent: Abdominal Pain, Nausea, Vomiting Genitourinary Female: Normal Neurological: Dizziness. absent: Focal Weakness Psychiatric: Normal Physical Exam Vital Signs Reviewed: Yes Vital Signs Temp Pulse Resp BP Pulse Ox 10/16/16 01:40 16 99 10/16/16 01:14 97.9 F 75 16 99 10/15/16 23:15 97.9 F 72 18 122/76 98 Temperature: Afebrile Blood Pressure: Normal Pulse: Regular Respiratory Rate: Normal Appearance: Positive for: Well-Appearing, Non-Toxic, Comfortable Pain Distress: None Mental Status: Positive for: Alert and Oriented X 3 - Systems Exam Head: Present: Atraumatic, Normocephalic Pupils: Present: PERRL Conjunctiva: Present: Normal Ears: Present: Normal, NORMAL TM, Normal Canal. No: Erythema, TM Bulging Mouth: Present: Moist Mucous Membranes Respiratory/Chest: Present: Clear to Auscultation, Good Air Exchange. No: Respiratory Distress, Accessory Muscle Use Cardiovascular: Present: Regular Rate and Rhythm, Normal S1, S2. No: Murmurs Abdomen: Present: Normal Bowel Sounds. No: Tenderness, Distention, Peritoneal Signs Upper Extremity: Present: Normal Inspection. No: Cyanosis, Edema Lower Extremity: Present: Normal Inspection. No: Edema Neurological: Present: GCS=15, CN II-XII Intact, Speech Normal, Motor Func Grossly Intact, Normal Sensory Function Skin: Present: Warm, Dry, Normal Color. No: Rashes Psychiatric: Present: Alert, Oriented x 3, Normal Insight, Normal Concentration Medical Decision Making ED Course and Treatment: 10/16/16 00:12 Impression: A 51 year old female who presents to the emergency department complaining of dizziness since yesterday evening. Plan: -- CT Head -- EKG -- Labs -- Reglan -- Reassess and disposition Progress Notes: 10/16/16 02:03 EKG reviewed by me: Sinus Vradycarida @ 59 bpm with sinus arrhythmia. Moderate voltage criteria for LVH, may be normal variant. CT Head results reviewed: FINDINGS: Brain: There are scattered foci of hypodensity within the cerebral white matter , suggestive of small vessel ischemic disease. Demyelination is within the differential. The acuity of the white matter disease is indeterminate. The white-hugo differentiation is preserved demonstrating no acute territorial type infarct. No acute intracranial hemorrhage is seen. Midline shift: There is no midline shift. Ventricles: No ventriculomegaly. Bones/joints: The calvarium demonstrates no evidence for a depressed fracture. Soft tissues: No acute abnormality. Sinuses: No acute sinusitis. Mastoid air cells: No mastoid effusion. Orbits: There is bilateral proptosis. IMPRESSION: 1. No acute intracranial hemorrhage or acute territorial type infarct. 2. There are scattered foci of hypodensity within the cerebral white matter, suggestive of small vessel ischemic disease. Demyelination is within the differential. A nonemergent MRI is suggested. 3. Incidental/non-acute findings are described above. On reevaluation the patient feels better and is in no acute distress. I have discussed the results and plan with the patient, who expresses understanding. Patient given the opportunity to ask question, all questions were answered and there is agreement with the plan to discharge the patient home. Patient is stable for discharge. Patient was instructed to follow up with physician/clinic in 1-2 days or return if symptoms persist/worsen or new concerning symptoms arise. Re-evaluation Time: 01:31 Reassessment Condition: Re-examined, Improved - Lab Interpretations Lab Results: 10/16/16 00:10 10/16/16 00:10 Lab Results 10/16/16 00:10: Sodium 138, Potassium 3.7, Chloride 102, Carbon Dioxide 29, Anion Gap 11, BUN 13, Creatinine 0.6, Est GFR ( Amer) > 60, Est GFR (Non- Af Amer) > 60, Random Glucose 201 H, Calcium 8.9, Total Bilirubin 0.6, AST 18, ALT 30, Alkaline Phosphatase 94, Troponin I < 0.01, Total Protein 7.0, Albumin 3.7, Globulin 3.3, Albumin/Globulin Ratio 1.1 10/16/16 00:10: WBC 9.2, RBC 4.43, Hgb 12.4, Hct 37.4, MCV 84.4, MCH 28.0, MCHC 33.2, RDW 13.2, Plt Count 199, MPV 11.1 H, Gran % 71.6 H, Lymph % (Auto) 20.0 L , [place] % (Auto) 6.0, Eos % (Auto) 2.1, Baso % (Auto) 0.3, Gran # 6.61 H, Lymph # 1.9, [place] # 0.6, Eos # 0.2, Baso # 0.03 I have reviewed the lab results: Yes - RAD Interpretation Radiology Orders: 10/15/16 23:51 HEAD W/O CONTRAST [CT] Stat Collet Making Machine Operator: Radiologist - EKG Interpretation Interpreted by ED Physician: Yes Type: 12 lead EKG - Medication Orders Current Medication Orders: Discontinued Medications Metoclopramide HCl (Reglan) 10 mg IVP ONCE ONE Stop: 10/15/16 23:53 Last Admin: 10/16/16 01:10 Dose: 10 mg - Scribe Statement The provider has reviewed the documentation as recorded by the Valarie Cantu Provider Attestation: Provider Scribe Attestation: All medical record entries made by the Valarie were at my direction and personally dictated by me. I have reviewed the chart and agree that the record accurately reflects my personal performance of the history, physical exam, medical decision making, and the department course for this patient. I have also personally directed, reviewed, and agree with the discharge instructions and disposition. Disposition/Present on Arrival - Present on Arrival Any Indicators Present on Arrival: No History of DVT/PE: No History of Uncontrolled Diabetes: No Urinary Catheter: No History of Decub. Ulcer: No History Surgical Site Infection Following: None - Disposition Have Diagnosis and Disposition been Completed?: Yes Diagnosis: Vertigo, Ear ache Disposition: HOME/ ROUTINE Disposition Time: :31 Condition: GOOD Discharge Instructions (ExitCare): Dizziness (ED) Referrals: Brent Blanton MD [Primary Care Provider] - Follow up with primary
[2016-10-16 00:51] LABS: ADD MANUAL DIFF? NO
[2016-10-16 01:04] LABS: ALB/GLOB RATIO 1.1 (1.1-1.8); ALKALINE PHOSPHATASE 94 U/L (38-133); ALT/SGPT 30 U/L (7-56); AST/SGOT 18 U/L (15-39); BILIRUBIN,TOTAL 0.6 mg/dL (0.2-1.3); BLOOD UREA NITROGEN 13 mg/dL (7-21); CALCIUM 8.9 mg/dL (8.4-10.5); CARBON DIOXIDE 29 mmol/L (21-33); CHLORIDE 102 mmol/L (98-107); GFR AFRICAN-AMERICAN > 60; GLUCOSE,RANDOM 201 mg/dL (70-110); POTASSIUM 3.7 mmol/L (3.6-5.0); SODIUM 138 mmol/L (132-148)
[2016-10-16 01:05] LABS: BASO # 0.03 K/mm3 (0.0-2.0); BASO % 0.3 % (0.0-3.0); EOS # 0.2 (0.0-0.7); EOS % 2.1 % (1.5-5.0); GRAN # 6.61 (1.4-6.5); GRAN % 71.6 % (50.0-68.0); HEMATOCRIT 37.4 % (36.0-48.0); LYMPH # 1.9 (1.2-3.4); MEAN CELL VOLUME 84.4 fL (80.0-105.0); MEAN CORPUSCULAR HGB CONC 33.2 g/dl (31.0-37.0); MEAN PLATELET VOLUME 11.1 fl (7.0-11.0); MONO # 0.6 (0.1-0.6); PLATELET COUNT 199 10^3/uL (120.0-450.0); RED CELL DISTRIBUTION WIDTH 13.2 % (11.5-14.5); WHITE BLOOD COUNT 9.2 10^3/ul (4.5-11.0)
[2016-10-16 01:14] VITALS: PULSE 75; RESP 16; O2SAT 99
[2016-10-16 01:21] LABS: TROPONIN I < 0.01 ng/mL
--- NOTE | 2016-10-16 08:36 | CT ---
PROCEDURE: CT HEAD WITHOUT CONTRAST. HISTORY: diZzy COMPARISON: 09/25/2016 TECHNIQUE: Axial computed tomography images were obtained through the head/brain without intravenous contrast. Radiation dose: Total exam DLP = 688 mGy-cm. This CT exam was performed using one or more of the following dose reduction techniques: Automated exposure control, adjustment of the mA and/or kV according to patient size, and/or use of iterative reconstruction technique. FINDINGS: HEMORRHAGE: No intracranial hemorrhage. BRAIN: No mass effect or edema. No atrophy or chronic microvascular ischemic changes. VENTRICLES: Unremarkable. No hydrocephalus. CALVARIUM: Unremarkable. PARANASAL SINUSES: Unremarkable as visualized. No significant inflammatory changes. MASTOID AIR CELLS: Unremarkable as visualized. No inflammatory changes. OTHER FINDINGS: The report concurs with the preliminary [facility] report IMPRESSION: No acute findings
--- NOTE | 2016-10-16 15:17 | CARD ---
APPROVED REPORT EKG Measurement Heart [id number] <Conclusion> Sinus bradycardia with sinus arrhythmia Moderate voltage criteria for LVH, may be normal variant
== END 2016-10-16 01:40 | disposition home or self-care (01) ==
LOC: ED 23:04
DX: R42 Dizziness and giddiness (principal); H92.09 Otalgia, unspecified ear; I10 Essential (primary) hypertension
CPT/HCPCS: 70450; 80053; 84484; 85025; 93005; 96374; 99284; J2765